=== PATIENT | male | born 1945 | race Caucasian/White ===

== ENCOUNTER 2018-03-07 09:39 | Inpatient (IN) | payer MEDICARE, BC, OTHER ==
[~2018-03-07] VITALS: Ht 170.2 cm; Wt 62.7 kg
[2018-03-07 10:32] LABS: BASOPHILS % (AUTO) 0.3 % (0-1); EOSINOPHILS # (AUTO) 0.2 X10'3 (0-0.9); EOSINOPHILS % (AUTO) 1.7 % (0-6); HEMOGLOBIN 13.4 g/dl (14.0-17.9); LYMPHOCYTES # (AUTO) 0.7 X10'3 (1.1-4.8); LYMPHOCYTES % (AUTO) 7.9 % (21-51); MEAN CORPUSCULAR HEMOGLOBIN 31.2 PG (27.0-31.0); MEAN CORPUSCULAR HGB CONC 33.5 % (33.0-36.5); MEAN CORPUSCULAR VOLUME 93.2 FL (78-98); MONOCYTES # (AUTO) 0.7 X10'3 (0-0.9); MONOCYTES % (AUTO) 7.6 % (2-12); NEUTROPHILS # (AUTO) 7.6 X10'3 (1.8-7.7); NEUTROPHILS % (AUTO) 82.5 % (42-75); PLATELET COUNT 374 X10'3 (140-440); RED BLOOD COUNT 4.29 X10'6 (4.70-6.10); RED CELL DISTRIBUTION WIDTH 14.7 % (11.5-14.5); WHITE BLOOD COUNT 9.2 X10'3 (4.5-11.0)
[2018-03-07 10:44] LABS: INR 1.1 INR; PARTIAL THROMBOPLASTIN TIME 31 SECONDS (22-32); PROTHROMBIN TIME 11.2 SECONDS (9.0-12.0)
[2018-03-07] MEDS ORDERED: vancomycin/NS 1 GM ADD-VANTAGE 250 ML IV ONE (10:45)
[2018-03-07 10:51] LABS: ALANINE AMINOTRANSFERASE 16 U/L (12-78); ALBUMIN 3.1 G/DL (3.4-5.0); ALBUMIN/GLOBULIN RATIO 0.8 (1.1-1.5); ALKALINE PHOSPHATASE 99 IU/L (46-116); ANION GAP 8 (8-16); ASPARTATE AMINO TRANSFERASE 15 U/L (10-37); BILIRUBIN,TOTAL 0.6 MG/DL (0.1-1.0); BLOOD UREA NITROGEN 13 MG/DL (7-18); BUN/CREATININE RATIO 19.4 (5.4-32.0); CALCIUM 8.6 MG/DL (8.5-10.1); CHLORIDE 100 MMOL/L (99-107); CREATININE 0.67 MG/DL (0.60-1.10); GLUCOSE 99 MG/DL (70-104); SODIUM 137 MMOL/L (135-145); TOTAL CARBON DIOXIDE 28.9 MMOL/L (24-32); eGFR > 90 ML/MIN
[2018-03-07] MEDS ORDERED: iohexol 300mg/ml 100ml inj. ONE (11:23)
[2018-03-07 12:42] LABS: C-REACTIVE PROTEIN 11.87 MG/DL (0.0-0.5)
[2018-03-07] MEDS ORDERED: [UNRECOGNIZED DRUG - CODE] PO (12:53)
[2018-03-07] MEDS ORDERED: MULT-933 PO (12:53)
[2018-03-07] MEDS ORDERED: NEOM28.37 TOP (12:53)
[2018-03-07] MEDS ORDERED: ESCI10TA54 PO (12:53)
[2018-03-07] MEDS ORDERED: ACET-75 PO (12:53)
[2018-03-07] MEDS ORDERED: HALO1TAB PO (12:53)
[2018-03-07] MEDS ORDERED: FAMO20TA8 PO (12:53)
[2018-03-07] MEDS ORDERED: ALPR-385 PO (12:53)
[2018-03-07] MEDS ORDERED: DOXE50CA4 PO (12:53)
[2018-03-07] MEDS ORDERED: MINE120C3 TP (12:53)
[2018-03-07] MEDS ORDERED: FINA5TAB11 PO (12:53)
--- NOTE | 2018-03-07 14:05 | NUR ---
PICTURES OF RIGHT ARM WOUND TAKEN AND PLACED ON CHART. DR. WU IN TO ASSESS PATIENT AND SPEAK WITH SON. ORDER RECEIVED TO ADMINISTER ATIVAN PRIOR TO MRI.
--- NOTE | 2018-03-07 14:10 | NUR ---
BULKY DRESSING APPLIED TO RIGHT ARM WOUND WITH GAUZE AND SARA WRAP.
[2018-03-07] MEDS ORDERED: LORazepam 2 mg/ml vial IV ONE (14:15)
--- NOTE | 2018-03-07 14:20 | NUR ---
MEDICATED WITH ATIVAN. TO MRI PER WC WITH SON AND BLUNGER MACHINE OPERATOR.
[2018-03-07] MEDS ORDERED: non-formulary drug (Acetaminophen 1 TABLET) PO PRN (14:50)
[2018-03-07] MEDS ORDERED: magnesium 2GM in 50ml NS 50 ML IV PRN (14:50)
[2018-03-07] MEDS ORDERED: acetaminophen 325mg tablet PO PRN ×2 (14:50→15:30)
[2018-03-07] MEDS ORDERED: magnesium Cl slow-release 64mg tablet PO PRN (14:50)
[2018-03-07] MEDS ORDERED: mag hydrox/Alum hydrox/simeth 30ml oral suspension PO PRN (14:50)
[2018-03-07] MEDS ORDERED: magnesium hydroxide 30ml (MOM) UD suspension PO PRN (14:50)
[2018-03-07] MEDS ORDERED: haloperidol 1mg tablet PO PRN (14:50)
[2018-03-07] MEDS ORDERED: magnesium 4gm in 100ml NS 100 ML IV PRN (14:50)
[2018-03-07] MEDS ORDERED: potassium Cl 20 mEq SR tablet PO PRN ×2 (14:50)
[2018-03-07] MEDS ORDERED: potassium Cl 40MEQ/NS 500ml 500 ML IV PRN ×2 (14:50)
[2018-03-07] MEDS ORDERED: ondansetron/PF 4mg/2ml inj IV PRN (14:50)
[2018-03-07] MEDS ORDERED: gadopentetate dimeglumine 7.5 MMOL/15 ML syringe ONE (15:56)
--- NOTE | 2018-03-07 16:21 | NUR ---
SERVED REGULAR SACK LUNCH AND TOLERATED WELL. SON ASSISTING WITH EATING.
[2018-03-07] MEDS: normal saline 1000ml 1,000 ML IV SCH (16:53)
--- NOTE | 2018-03-07 17:06 | NUR ---
I have received patient report from Carrie MUNGUIA
[2018-03-07 17:40] VITALS: BP 138/87
[2018-03-07] MEDS: morphine 4 MG/ML inj SYRINge IV PRN (17:53)
--- NOTE | 2018-03-07 18:19 | NUR ---
Patient pulled off tele monitor about 2 minutes after we had placed it on.
--- NOTE | 2018-03-07 18:30 | NUR ---
I paged Dr. Joe that patients chest all red from the tele pads and he keeps peeling them off. She said ok to DC the tele.
--- NOTE | 2018-03-07 18:36 | NUR ---
I gave patient report to Summer Olvera
[2018-03-07] MEDS ORDERED: non-formulary drug (Doxepin HCl 1 CAP) PO SCH (21:00)
[2018-03-07] MEDS ORDERED: non-formulary drug (Alprazolam 1 TAB) PO SCH (21:00)
[2018-03-07] MEDS: doxepin 25mg capsule PO SCH (21:42)
[2018-03-07] MEDS: ALPRAZolam 0.5mg tablet PO SCH (21:42)
[2018-03-07] MEDS: heparin, porcine 5000 units/ml vial SQ SCH (21:44)
[2018-03-07 22:00] VITALS: BP 124/73
[2018-03-07] MEDS: vancomycin/NS 1 GM ADD-VANTAGE 250 ML IV SCH (23:23)
[2018-03-08] VITALS (17 sets, daily range): BP systolic 111–145; BP diastolic 68–90
[2018-03-08] MEDS: normal saline 1000ml 1,000 ML IV SCH ×3 (04:09→19:41)
[2018-03-08 06:24] LABS: BASOPHILS # (AUTO) 0.1 X10'3 (0-0.2); EOSINOPHILS # (AUTO) 0.5 X10'3 (0-0.9); EOSINOPHILS % (AUTO) 8.6 % (0-6); HEMATOCRIT 33.8 % (42.0-52.0); HEMOGLOBIN 11.4 g/dl (14.0-17.9); LYMPHOCYTES # (AUTO) 0.7 X10'3 (1.1-4.8); LYMPHOCYTES % (AUTO) 12.1 % (21-51); MEAN CORPUSCULAR HEMOGLOBIN 31.5 PG (27.0-31.0); MEAN CORPUSCULAR HGB CONC 33.8 % (33.0-36.5); MEAN CORPUSCULAR VOLUME 92.9 FL (78-98); MEAN PLATELET VOLUME 7.9 FL (7.4-10.4); MONOCYTES # (AUTO) 0.6 X10'3 (0-0.9); MONOCYTES % (AUTO) 10.4 % (2-12); NEUTROPHILS # (AUTO) 3.8 X10'3 (1.8-7.7); NEUTROPHILS % (AUTO) 67.9 % (42-75); PLATELET COUNT 274 X10'3 (140-440); RED BLOOD COUNT 3.64 X10'6 (4.70-6.10); RED CELL DISTRIBUTION WIDTH 14.4 % (11.5-14.5); WHITE BLOOD COUNT 5.6 X10'3 (4.5-11.0)
[2018-03-08 06:51] LABS: ALANINE AMINOTRANSFERASE 12 U/L (12-78); ALBUMIN 2.3 G/DL (3.4-5.0); ALBUMIN/GLOBULIN RATIO 0.7 (1.1-1.5); ALKALINE PHOSPHATASE 78 IU/L (46-116); ANION GAP 5 (8-16); ASPARTATE AMINO TRANSFERASE 14 U/L (10-37); BILIRUBIN,TOTAL 0.4 MG/DL (0.1-1.0); BLOOD UREA NITROGEN 8 MG/DL (7-18); BUN/CREATININE RATIO 13.6 (5.4-32.0); CHLORIDE 105 MMOL/L (99-107); CREATININE 0.59 MG/DL (0.60-1.10); GLUCOSE 84 MG/DL (70-104); MAGNESIUM 1.8 MG/DL (1.5-2.4); POTASSIUM 3.7 MMOL/L (3.5-5.1); SODIUM 139 MMOL/L (135-145); TOTAL CARBON DIOXIDE 29.1 MMOL/L (24-32); TOTAL PROTEIN 5.5 G/DL (6.4-8.2); eGFR > 90 ML/MIN
[2018-03-08] MEDS: famotidine 20mg tablet PO SCH (07:15)
[2018-03-08] MEDS: citalopram 20mg tablet PO SCH (07:15)
[2018-03-08] MEDS: finasteride 5mg tablet PO SCH (07:16)
[2018-03-08] MEDS: heparin, porcine 5000 units/ml vial SQ SCH ×2 (08:00→20:11)
[2018-03-08] MEDS: K and/or MAG REPLACEMENT MC SCH (08:00)
[2018-03-08] MEDS: vancomycin/NS 1 GM ADD-VANTAGE 250 ML IV SCH ×2 (12:10→22:29)
--- NOTE | 2018-03-08 14:10 | NUR ---
I gave patient report to So MUNGUIA in Recovery and I let her know about patient blood sugar 74. She said she would tell anesthesia.
[2018-03-08] MEDS ORDERED: ringers solution, lacted 1,000 ML IV SCH (14:33)
[2018-03-08] MEDS ORDERED: labetalol 20mg/4ml (5mg/ml) syringe IV PRN (14:35)
[2018-03-08] MEDS ORDERED: ceFAZolin 1000mg inj ONE (14:35)
[2018-03-08] MEDS ORDERED: morphine 4 MG/ML inj SYRINge IV PRN ×2 (14:35)
[2018-03-08] MEDS ORDERED: bacitracin 15gm ointment TP ONE (14:35)
[2018-03-08] MEDS ORDERED: ondansetron/PF 4mg/2ml inj IV PRN (14:35)
[2018-03-08] MEDS ORDERED: fentaNYL/PF 50MCG/1 ML 2ML syringe IV PRN ×2 (14:35)
[2018-03-08] MEDS ORDERED: hydrALAZINE 20mg/ml inj. IV PRN (14:35)
[2018-03-08] MEDS ORDERED: fentaNYL/PF 50MCG/1 ML 2ML syringe ONE ×2 (14:57→16:11)
[2018-03-08] MEDS ORDERED: midazolam 2 mg/2 ml injection ONE (14:58)
[2018-03-08] MEDS ORDERED: LIDOcaine 2% (20mg/ml) 5ml vial ONE (16:11)
[2018-03-08] MEDS ORDERED: propofol inj 20 ML IV ONE (16:11)
--- NOTE | 2018-03-08 17:10 | NUR ---
Report called to receiving nurse. Transferred via BED Belongings . Special Issues communicated to receiving nurse.AWAKE AND IN NO APPARANT DISTRESS. VITALS STABLE. DRESSING DI. TO ORTHO RM 4009B AT THIS TIME.
--- NOTE | 2018-03-08 17:27 | NUR ---
I have received patient report from Cortez MUNGUIA
--- NOTE | 2018-03-08 18:15 | NUR ---
Patient in room ORTHO 4009a. I have received report from EZRA Vergara and had the opportunity to ask questions and assume patient care.
--- NOTE | 2018-03-08 18:19 | NUR ---
Patient report given to Summer Ortega RN
[2018-03-08] MEDS: doxepin 25mg capsule PO SCH (20:11)
[2018-03-08] MEDS: lactobacillus rhamnosus 10,000 MMU CELLS/CAPSULE PO SCH (20:11)
[2018-03-08] MEDS: ALPRAZolam 0.5mg tablet PO SCH (20:11)
[2018-03-08] MEDS ORDERED: VANCOMYCIN LEVEL IV ONE (22:30)
--- NOTE | 2018-03-08 22:40 | NUR ---
Bladder scanned patient unknown last time voided due to surgery. Bladder scan showed 343ml. Will continue to monitor.
[2018-03-09] VITALS (8 sets, daily range): BP systolic 82–139; BP diastolic 44–89
--- NOTE | 2018-03-09 00:13 | NUR ---
PAGER ID: [phone] MESSAGE: Burt Amelie [phone] here for Right arm abscess who had I&D done with wound vac on days has not voided since I came on. Bladder scanned for 548 ml. Chandler? or Straight catheter. has hx of BPH. Call ivy at [phone]
--- NOTE | 2018-03-09 01:06 | NUR ---
Unable to do straight cath per Marcus due to his enlarged prostate. I was however able to place a gonzalez catheter with a 14 turkish coude catheter. I did page Dr. Velazquez to inform him that I had to place a gnozalez catheter but he has yet to call me back. It is unsafe to keep doing straight catheters on a patient with BPH because it would cause unnecessary trauma.
--- NOTE | 2018-03-09 06:18 | NUR ---
Problems reprioritized. Patient report given, questions answered & plan of care reviewed with EZRA Valdez.
--- NOTE | 2018-03-09 06:20 | NUR ---
Patient in room ORTHO 4009. I have received report from Summer Romano and had the opportunity to ask questions and assume patient care.
[2018-03-09 07:12] LABS: BASOPHILS # (AUTO) 0.1 X10'3 (0-0.2); BASOPHILS % (AUTO) 0.9 % (0-1); EOSINOPHILS # (AUTO) 0.4 X10'3 (0-0.9); EOSINOPHILS % (AUTO) 7.2 % (0-6); HEMATOCRIT 34.3 % (42.0-52.0); HEMOGLOBIN 11.4 g/dl (14.0-17.9); LYMPHOCYTES # (AUTO) 0.6 X10'3 (1.1-4.8); LYMPHOCYTES % (AUTO) 10.1 % (21-51); MEAN CORPUSCULAR HEMOGLOBIN 30.7 PG (27.0-31.0); MEAN CORPUSCULAR HGB CONC 33.1 % (33.0-36.5); MEAN CORPUSCULAR VOLUME 92.8 FL (78-98); MONOCYTES # (AUTO) 0.5 X10'3 (0-0.9); MONOCYTES % (AUTO) 7.9 % (2-12); NEUTROPHILS # (AUTO) 4.3 X10'3 (1.8-7.7); NEUTROPHILS % (AUTO) 73.9 % (42-75); PLATELET COUNT 286 X10'3 (140-440); RED CELL DISTRIBUTION WIDTH 14.6 % (11.5-14.5); WHITE BLOOD COUNT 5.9 X10'3 (4.5-11.0)
[2018-03-09 07:38] LABS: ALANINE AMINOTRANSFERASE 13 U/L (12-78); ALBUMIN 2.4 G/DL (3.4-5.0); ALBUMIN/GLOBULIN RATIO 0.7 (1.1-1.5); ALKALINE PHOSPHATASE 75 IU/L (46-116); ANION GAP 13 (8-16); ASPARTATE AMINO TRANSFERASE 14 U/L (10-37); BILIRUBIN,TOTAL 0.6 MG/DL (0.1-1.0); BLOOD UREA NITROGEN 8 MG/DL (7-18); BUN/CREATININE RATIO 11.9 (5.4-32.0); CHLORIDE 104 MMOL/L (99-107); CREATININE 0.67 MG/DL (0.60-1.10); GLUCOSE 68 MG/DL (70-104); MAGNESIUM 1.7 MG/DL (1.5-2.4); POTASSIUM 3.8 MMOL/L (3.5-5.1); SODIUM 141 MMOL/L (135-145); TOTAL CARBON DIOXIDE 24.3 MMOL/L (24-32); TOTAL PROTEIN 5.7 G/DL (6.4-8.2); eGFR > 90 ML/MIN
[2018-03-09] MEDS: K and/or MAG REPLACEMENT MC SCH (08:00)
[2018-03-09] MEDS: famotidine 20mg tablet PO SCH (10:47)
[2018-03-09] MEDS: lactobacillus rhamnosus 10,000 MMU CELLS/CAPSULE PO SCH ×2 (10:47→18:58)
[2018-03-09] MEDS: finasteride 5mg tablet PO SCH (10:47)
[2018-03-09] MEDS: citalopram 20mg tablet PO SCH (10:47)
[2018-03-09] MEDS: heparin, porcine 5000 units/ml vial SQ SCH ×2 (10:49→18:59)
[2018-03-09] MEDS ORDERED: vancomycin inj 1,250 MG in normal saline 250ml IV soln 250 ML IV SCH (11:00)
[2018-03-09] MEDS: normal saline 1000ml 1,000 ML IV SCH (11:21)
[2018-03-09] MEDS: morphine 4 MG/ML inj SYRINge IV PRN (11:21)
[2018-03-09] MEDS ORDERED: haloperidol 10mg/5ml UD oral solution PO PRN (12:17)
--- NOTE | 2018-03-09 14:35 | NUR ---
PAGER ID: [phone] MESSAGE: Courtney Pierre Dr. on ortho/neuro, # [phone], re: pt in room 4009A, Mr. Kinsey, please call me at your earliest convenience, thank you
[2018-03-09] MEDS: HYDROcodone/acetaminophen 10/325mg tab PO PRN (15:54)
[2018-03-09] MEDS: ceFAZolin 1GM/D5W- ADD-VANTAGE 50 ML IV SCH ×2 (16:36→23:44)
--- NOTE | 2018-03-09 18:06 | NUR ---
Problems reprioritized. Patient report given, questions answered & plan of care reviewed with Summer Romano
--- NOTE | 2018-03-09 18:15 | NUR ---
Received report from EZRA Valdez.
[2018-03-09] MEDS: doxepin 25mg capsule PO SCH (18:58)
[2018-03-09] MEDS: ALPRAZolam 0.5mg tablet PO SCH (18:58)
--- NOTE | 2018-03-09 19:00 | NUR ---
Had to have patient have a sitter for short period of time due to patient pulling at lines. Patient took all medication early per family request.
[2018-03-09] MEDS ORDERED: normal saline 500ml IV soln 500 ML IV ONE (21:45)
--- NOTE | 2018-03-09 22:56 | NUR ---
Bolused patient due to borderline low bp with 250 ml and bp went up to 100/50. Tylenol provided for temp of 102.2 with decrease with cooling measures and tylenol. Now temp 100.4 oral. Bladder scanned patient with noted 103 ml noted in bladder.
--- NOTE | 2018-03-10 03:10 | NUR ---
Patient still hasn't voided this shift; again bladder scanned with only 131 ml noted in bladder. Will continue to monitor.
--- NOTE | 2018-03-10 06:21 | NUR ---
Problems reprioritized. Patient report given, questions answered & plan of care reviewed with EZRA Jalloh.
[2018-03-10 06:59] VITALS: BP 83/54
[2018-03-10 07:12] LABS: EOSINOPHILS # (AUTO) 0.4 X10'3 (0-0.9); EOSINOPHILS % (AUTO) 8.8 % (0-6); HEMATOCRIT 30.6 % (42.0-52.0); HEMOGLOBIN 10.4 g/dl (14.0-17.9); LYMPHOCYTES # (AUTO) 0.8 X10'3 (1.1-4.8); LYMPHOCYTES % (AUTO) 17.8 % (21-51); MEAN CORPUSCULAR HEMOGLOBIN 31.6 PG (27.0-31.0); MEAN CORPUSCULAR HGB CONC 33.9 % (33.0-36.5); MEAN CORPUSCULAR VOLUME 93.2 FL (78-98); MEAN PLATELET VOLUME 7.7 FL (7.4-10.4); MONOCYTES # (AUTO) 0.6 X10'3 (0-0.9); MONOCYTES % (AUTO) 14.8 % (2-12); NEUTROPHILS # (AUTO) 2.4 X10'3 (1.8-7.7); NEUTROPHILS % (AUTO) 57.6 % (42-75); PLATELET COUNT 271 X10'3 (140-440); RED BLOOD COUNT 3.28 X10'6 (4.70-6.10); RED CELL DISTRIBUTION WIDTH 14.4 % (11.5-14.5); WHITE BLOOD COUNT 4.3 X10'3 (4.5-11.0)
[2018-03-10] MEDS: famotidine 20mg tablet PO SCH (07:43)
[2018-03-10] MEDS: ceFAZolin 1GM/D5W- ADD-VANTAGE 50 ML IV SCH ×2 (07:43→17:12)
[2018-03-10] MEDS: lactobacillus rhamnosus 10,000 MMU CELLS/CAPSULE PO SCH ×2 (07:43→20:26)
[2018-03-10] MEDS: finasteride 5mg tablet PO SCH (07:43)
[2018-03-10] MEDS: citalopram 20mg tablet PO SCH (07:43)
[2018-03-10] MEDS: K and/or MAG REPLACEMENT MC SCH (07:44)
[2018-03-10] MEDS: heparin, porcine 5000 units/ml vial SQ SCH ×2 (07:44→20:27)
[2018-03-10 07:48] LABS: ALANINE AMINOTRANSFERASE 15 U/L (12-78); ALBUMIN 2.1 G/DL (3.4-5.0); ALBUMIN/GLOBULIN RATIO 0.7 (1.1-1.5); ALKALINE PHOSPHATASE 67 IU/L (46-116); ANION GAP 8 (8-16); ASPARTATE AMINO TRANSFERASE 18 U/L (10-37); BILIRUBIN,TOTAL 0.3 MG/DL (0.1-1.0); BLOOD UREA NITROGEN 10 MG/DL (7-18); BUN/CREATININE RATIO 13.2 (5.4-32.0); CALCIUM 7.6 MG/DL (8.5-10.1); CHLORIDE 108 MMOL/L (99-107); CREATININE 0.76 MG/DL (0.60-1.10); GLUCOSE 95 MG/DL (70-104); MAGNESIUM 1.7 MG/DL (1.5-2.4); POTASSIUM 3.3 MMOL/L (3.5-5.1); SODIUM 142 MMOL/L (135-145); TOTAL CARBON DIOXIDE 25.6 MMOL/L (24-32); TOTAL PROTEIN 5.1 G/DL (6.4-8.2); eGFR > 90 ML/MIN
[2018-03-10] MEDS: normal saline 1000ml 1,000 ML IV SCH ×2 (09:17→20:49)
[2018-03-10 10:50] VITALS: BP 114/76
--- NOTE | 2018-03-10 18:00 | NUR ---
REPORT REC'D FROM EZRA LAGUERRE.
[2018-03-10 18:17] VITALS: BP 159/78
[2018-03-10] MEDS: ALPRAZolam 0.5mg tablet PO SCH (20:26)
[2018-03-10] MEDS: doxepin 25mg capsule PO SCH (20:27)
[2018-03-10 22:00] VITALS: BP 143/88
[2018-03-10] MEDS ORDERED: VANCOMYCIN LEVEL IV NR (22:30)
[2018-03-10] MEDS: HYDROcodone/acetaminophen 10/325mg tab PO PRN (22:59)
[2018-03-11] MEDS: ceFAZolin 1GM/D5W- ADD-VANTAGE 50 ML IV SCH ×3 (00:16→15:42)
[2018-03-11] MEDS ORDERED: methylPREDNISolone sod succ 125mg/2ml vial IV ONE (00:40)
--- NOTE | 2018-03-11 01:18 | NUR ---
NOTIFIED DR PALMA R/T PT ITCHING AND RASH ON BACK, NO BENEDRYL. GAVE NEW ORDER FOR SOLUMEDROL 62.5MG IV ONCE.
--- NOTE | 2018-03-11 02:09 | NUR ---
PT PULLED OUT PIV ON LEFT AC. NEW 20GU PIV PLACED ON RFA ONE ATTEMPT. COBAN WRAPPED TO PIV AND TO COVER LOOSELY ON WOUND VAC SITE PT WAS ALREADY TRYING TO PULL OUT. SOLUMEDROL GIVEN ORDERED FOR ITCHING RASH. TOPICAL CALAZIME CREAM TO RASH TO HELP WITH ITCHING.
--- NOTE | 2018-03-11 03:31 | NUR ---
CONDOM CATH APPLIED , FUNCTIONING WELL.
--- NOTE | 2018-03-11 06:17 | NUR ---
REPORT GIVEN TO EZRA LAGUERRE.
[2018-03-11 06:33] VITALS: BP 135/86
[2018-03-11 06:56] LABS: BASOPHILS % (AUTO) 0.1 % (0-1); EOSINOPHILS % (AUTO) 0 % (0-6); HEMATOCRIT 34.4 % (42.0-52.0); HEMOGLOBIN 11.5 g/dl (14.0-17.9); LYMPHOCYTES # (AUTO) 0.3 X10'3 (1.1-4.8); LYMPHOCYTES % (AUTO) 6.8 % (21-51); MEAN CORPUSCULAR HGB CONC 33.6 % (33.0-36.5); MEAN CORPUSCULAR VOLUME 92.5 FL (78-98); MONOCYTES % (AUTO) 1.1 % (2-12); NEUTROPHILS # (AUTO) 4.3 X10'3 (1.8-7.7); PLATELET COUNT 310 X10'3 (140-440); RED BLOOD COUNT 3.72 X10'6 (4.70-6.10); RED CELL DISTRIBUTION WIDTH 14.4 % (11.5-14.5); WHITE BLOOD COUNT 4.7 X10'3 (4.5-11.0)
[2018-03-11 07:30] LABS: ALANINE AMINOTRANSFERASE 19 U/L (12-78); ALBUMIN 2.5 G/DL (3.4-5.0); ALBUMIN/GLOBULIN RATIO 0.7 (1.1-1.5); ALKALINE PHOSPHATASE 81 IU/L (46-116); ANION GAP 10 (8-16); ASPARTATE AMINO TRANSFERASE 27 U/L (10-37); BILIRUBIN,TOTAL 0.3 MG/DL (0.1-1.0); BLOOD UREA NITROGEN 5 MG/DL (7-18); BUN/CREATININE RATIO 7.7 (5.4-32.0); CALCIUM 8.1 MG/DL (8.5-10.1); CHLORIDE 106 MMOL/L (99-107); CREATININE 0.65 MG/DL (0.60-1.10); GLUCOSE 131 MG/DL (70-104); MAGNESIUM 1.7 MG/DL (1.5-2.4); POTASSIUM 3.2 MMOL/L (3.5-5.1); SODIUM 142 MMOL/L (135-145); TOTAL CARBON DIOXIDE 26.2 MMOL/L (24-32); eGFR > 90 ML/MIN
[2018-03-11] MEDS: citalopram 20mg tablet PO SCH (07:37)
[2018-03-11] MEDS: finasteride 5mg tablet PO SCH (07:37)
[2018-03-11] MEDS: heparin, porcine 5000 units/ml vial SQ SCH ×2 (07:37→20:24)
[2018-03-11] MEDS: famotidine 20mg tablet PO SCH (07:37)
[2018-03-11] MEDS: lactobacillus rhamnosus 10,000 MMU CELLS/CAPSULE PO SCH ×2 (07:37→20:24)
[2018-03-11] MEDS: K and/or MAG REPLACEMENT MC SCH (07:38)
[2018-03-11] MEDS: HYDROcodone/acetaminophen 10/325mg tab PO PRN ×2 (09:02→12:33)
[2018-03-11] MEDS: normal saline 1000ml 1,000 ML IV SCH (10:04)
--- NOTE | 2018-03-11 10:58 | NUR ---
Extended PIV inserted to the left upper arm basilic vein x 1 attempt using ultrasound. Jacqui well Addendum: 03/11/18 at 1059 by Lady Cho RN Amended: Links added.
[2018-03-11 12:05] VITALS: BP 127/71
[2018-03-11] MEDS: morphine 4 MG/ML inj SYRINge IV PRN (12:10)
--- NOTE | 2018-03-11 13:12 | NUR ---
WOUND VAC EDUCATION PROVIDED BY WOUND CARE 1. Patient instructed to call the Wound Center or their Home Health Agency immediately if: * They notice a change in the color or amount of the fluid in the canister. * Their wound looks more red than usual or has a foul smell. * The skin around their wound looks reddened or irritated. * The dressing feels loose or appears to be loose. * They experience any increase or changes in their pain. * The alarm will not turn off. 2. Patient instructed that they should not be disconnected from suction for more than 2 hours at a time. * If they are not able to get the suction back on, they need to remove the dressing and take all of the foam out of the wound. * Then moisten sterile gauze with normal saline and place on/in the wound. * Change the dressing once a day until arrangements have been made to replace the wound vac dressing. 3. Patient instructed to turn the wound vac machine OFF and call 911 or go to the ED immediately if their canister fills rapidly with blood. 4. If any of these occur while in the hospital tell a nurse immediately.
--- NOTE | 2018-03-11 13:55 | NUR ---
RECOMMEND: 1. Daily bathing with no rinse skin cleanser. 2. Cream/Lotion to be applied to skin after bathing. 3. Arin care Q shift and prn soiling followed by with Barrier Cream. 4. Turn patient Q 1-2 hrs and reposition with pillows. 5. Float heels to offload pressure. 6. Conisder a dietary consult 7> Wound VAC to left upper arm. Settings 125mmHg, low, cont. Routine dressing changes
--- NOTE | 2018-03-11 14:00 | NUR ---
RECOMMEND: 1. Daily bathing with no rinse skin cleanser. 2. Cream/Lotion to be applied to skin after bathing. 3. Arin care Q shift and prn soiling followed by with Barrier Cream. 4. Turn patient Q 1-2 hrs and reposition with pillows. 5. Float heels to offload pressure. 6. Consider a dietary consult 7. Wound VAC to Right upper arm. Settings 125mmHg, low, cont. Routine dressing changes Addendum: 03/11/18 at 1405 by Radha Soria RN Amended: Links added.
[2018-03-11] MEDS ORDERED: potassium Cl 20 mEq SR tablet PO STA (14:36)
[2018-03-11 18:00] VITALS: BP 122/77
--- NOTE | 2018-03-11 18:40 | NUR ---
REPORT REC'D FROM EZRA LAGUERRE.
[2018-03-11] MEDS: doxepin 25mg capsule PO SCH (20:24)
[2018-03-11] MEDS: ALPRAZolam 0.5mg tablet PO SCH (20:24)
--- NOTE | 2018-03-11 20:31 | NUR ---
NEW CONDOM CATH APPLIED.
[2018-03-12] MEDS: normal saline 1000ml 1,000 ML IV SCH ×3 (00:33→23:30)
[2018-03-12] MEDS: ceFAZolin 1GM/D5W- ADD-VANTAGE 50 ML IV SCH ×4 (00:33→23:30)
[2018-03-12 02:30] VITALS: BP 110/71
--- NOTE | 2018-03-12 06:17 | NUR ---
REPORT GIVEN TO EZRA LAGUERRE.
[2018-03-12 06:36] LABS: BASOPHILS % (AUTO) 0.3 % (0-1); EOSINOPHILS # (AUTO) 0.1 X10'3 (0-0.9); EOSINOPHILS % (AUTO) 1.8 % (0-6); HEMOGLOBIN 11.1 g/dl (14.0-17.9); LYMPHOCYTES # (AUTO) 1.2 X10'3 (1.1-4.8); MEAN CORPUSCULAR HEMOGLOBIN 31.4 PG (27.0-31.0); MEAN CORPUSCULAR HGB CONC 33.7 % (33.0-36.5); MEAN CORPUSCULAR VOLUME 93.2 FL (78-98); MEAN PLATELET VOLUME 7.7 FL (7.4-10.4); MONOCYTES # (AUTO) 0.6 X10'3 (0-0.9); MONOCYTES % (AUTO) 8.5 % (2-12); NEUTROPHILS # (AUTO) 4.7 X10'3 (1.8-7.7); NEUTROPHILS % (AUTO) 71.4 % (42-75); PLATELET COUNT 294 X10'3 (140-440); RED BLOOD COUNT 3.54 X10'6 (4.70-6.10); RED CELL DISTRIBUTION WIDTH 14.8 % (11.5-14.5); WHITE BLOOD COUNT 6.5 X10'3 (4.5-11.0)
[2018-03-12 07:06] VITALS: BP 114/64
[2018-03-12 07:06] LABS: ALANINE AMINOTRANSFERASE 14 U/L (12-78); ALBUMIN 2.1 G/DL (3.4-5.0); ALBUMIN/GLOBULIN RATIO 0.7 (1.1-1.5); ALKALINE PHOSPHATASE 72 IU/L (46-116); ANION GAP 8 (8-16); ASPARTATE AMINO TRANSFERASE 20 U/L (10-37); BILIRUBIN,TOTAL 0.2 MG/DL (0.1-1.0); BLOOD UREA NITROGEN 9 MG/DL (7-18); CALCIUM 7.8 MG/DL (8.5-10.1); CHLORIDE 109 MMOL/L (99-107); CREATININE 0.75 MG/DL (0.60-1.10); GLUCOSE 91 MG/DL (70-104); MAGNESIUM 1.9 MG/DL (1.5-2.4); POTASSIUM 3.6 MMOL/L (3.5-5.1); SODIUM 143 MMOL/L (135-145); TOTAL CARBON DIOXIDE 25.6 MMOL/L (24-32); TOTAL PROTEIN 5.3 G/DL (6.4-8.2); eGFR > 90 ML/MIN
[2018-03-12] MEDS: K and/or MAG REPLACEMENT MC SCH (08:00)
[2018-03-12] MEDS: HYDROcodone/acetaminophen 10/325mg tab PO PRN ×2 (08:00→13:40)
[2018-03-12] MEDS: lactobacillus rhamnosus 10,000 MMU CELLS/CAPSULE PO SCH ×2 (08:00→20:24)
[2018-03-12] MEDS: finasteride 5mg tablet PO SCH (08:01)
[2018-03-12] MEDS: heparin, porcine 5000 units/ml vial SQ SCH ×2 (08:01→20:25)
[2018-03-12] MEDS: famotidine 20mg tablet PO SCH (08:01)
[2018-03-12] MEDS: citalopram 20mg tablet PO SCH (08:01)
[2018-03-12] MEDS ORDERED: bisacodyl 10mg suppository rectal RC STA (09:21)
[2018-03-12 10:00] VITALS: BP 127/81
--- NOTE | 2018-03-12 11:55 | NUR ---
Wound consult: Pt admit w/ R arm abscess s/p I&D w/ wound vac placement. PO 100% regular diet meeting needs. Ensure high protein added TIDWM for additional needs and since PO potential fluctuation given hx moderate dementia; MD notified. Not appropriate for protein ed r/t dementia. Receiving MoM PRN for bowel care. BRENTON d/w RN for MVM for wound healing per MD approval. Will continue to monitor. Rec; 1. continue regular diet 2. ensure high protein TIDWM 3. MVM for wound healing 4. wt per rx Addendum: 03/12/18 at [address] Amended: Links added.
[2018-03-12] MEDS ORDERED: lactose-reduced food (Ensure High Protein) 237ml bottle PO SCH (13:00)
[2018-03-12 18:00] VITALS: BP 139/83
[2018-03-12] MEDS: ALPRAZolam 0.5mg tablet PO SCH (20:24)
[2018-03-12] MEDS: doxepin 25mg capsule PO SCH (20:24)
[2018-03-12 22:00] VITALS: BP 131/73
[2018-03-13 06:00] VITALS: BP 141/59
--- NOTE | 2018-03-13 06:20 | NUR ---
Patient in room ORTHO 4009. I have received report from Jolanta and had the opportunity to ask questions and assume patient care.
--- NOTE | 2018-03-13 06:33 | NUR ---
REPORT GIVEN TO EZRA POLLARD.
[2018-03-13] MEDS: K and/or MAG REPLACEMENT MC SCH (08:00)
[2018-03-13] MEDS: lactose-reduced food (Ensure High Protein) 237ml bottle PO SCH ×3 (08:00→18:00)
[2018-03-13] MEDS: ceFAZolin 1GM/D5W- ADD-VANTAGE 50 ML IV SCH ×2 (09:24→15:52)
[2018-03-13] MEDS: citalopram 20mg tablet PO SCH (09:26)
[2018-03-13] MEDS: finasteride 5mg tablet PO SCH (09:27)
[2018-03-13] MEDS: famotidine 20mg tablet PO SCH (09:27)
[2018-03-13] MEDS: lactobacillus rhamnosus 10,000 MMU CELLS/CAPSULE PO SCH ×2 (09:27→21:13)
[2018-03-13] MEDS: heparin, porcine 5000 units/ml vial SQ SCH ×2 (09:29→21:14)
[2018-03-13 10:00] VITALS: BP 129/81
[2018-03-13] MEDS: morphine 4 MG/ML inj SYRINge IV PRN (14:13)
[2018-03-13] MEDS: normal saline 1000ml 1,000 ML IV SCH (15:52)
--- NOTE | 2018-03-13 17:38 | NUR ---
Pt pulled condom catheter off, replaced with new one
[2018-03-13 18:00] VITALS: BP 129/81
--- NOTE | 2018-03-13 18:11 | NUR ---
Pt pulled condom catheter off again
--- NOTE | 2018-03-13 18:18 | NUR ---
Problems reprioritized. Patient report given, questions answered & plan of care reviewed with Kelli.
[2018-03-13] MEDS: doxepin 25mg capsule PO SCH (21:14)
[2018-03-13] MEDS: ALPRAZolam 0.5mg tablet PO SCH (21:14)
[2018-03-13 22:00] VITALS: BP 98/50
[2018-03-14] MEDS: ceFAZolin 1GM/D5W- ADD-VANTAGE 50 ML IV SCH ×4 (00:08→23:43)
[2018-03-14 06:00] VITALS: BP 130/85
--- NOTE | 2018-03-14 06:00 | NUR ---
Patient in room ORTHO 4009. I have received report from Kelli MUNGUIA and had the opportunity to ask questions and assume patient care.
[2018-03-14] MEDS: lactose-reduced food (Ensure High Protein) 237ml bottle PO SCH ×3 (08:00→18:00)
[2018-03-14] MEDS: K and/or MAG REPLACEMENT MC SCH (08:00)
[2018-03-14] MEDS: normal saline 1000ml 1,000 ML IV SCH ×2 (08:39→20:09)
[2018-03-14] MEDS: heparin, porcine 5000 units/ml vial SQ SCH ×2 (08:40→20:35)
[2018-03-14] MEDS: finasteride 5mg tablet PO SCH (08:44)
[2018-03-14] MEDS: lactobacillus rhamnosus 10,000 MMU CELLS/CAPSULE PO SCH ×2 (08:44→20:35)
[2018-03-14] MEDS: citalopram 20mg tablet PO SCH (08:44)
[2018-03-14] MEDS: famotidine 20mg tablet PO SCH (08:44)
[2018-03-14 10:00] VITALS: BP 153/75
[2018-03-14 18:00] VITALS: BP 152/82
--- NOTE | 2018-03-14 18:05 | NUR ---
Problems reprioritized. Patient report given, questions answered & plan of care reviewed with Lizet MUNGUIA.
--- NOTE | 2018-03-14 18:10 | NUR ---
Patient in room ORTHO 4009. I have received report from EZRA Rider and had the opportunity to ask questions and assume patient care.
[2018-03-14] MEDS: doxepin 25mg capsule PO SCH (20:35)
[2018-03-14] MEDS: ALPRAZolam 0.5mg tablet PO SCH (20:35)
[2018-03-14 22:00] VITALS: BP 122/68
[2018-03-15] MEDS: normal saline 1000ml 1,000 ML IV SCH (05:48)
[2018-03-15 06:00] VITALS: BP 132/72
--- NOTE | 2018-03-15 06:15 | NUR ---
Patient in room ORTHO 4009. I have received report from Lizet MUNGUIA and had the opportunity to ask questions and assume patient care.
--- NOTE | 2018-03-15 06:16 | NUR ---
Problems reprioritized. Patient report given, questions answered & plan of care reviewed with EZRA Rider.
[2018-03-15] MEDS: K and/or MAG REPLACEMENT MC SCH (08:00)
[2018-03-15] MEDS: famotidine 20mg tablet PO SCH (08:17)
[2018-03-15] MEDS: citalopram 20mg tablet PO SCH (08:17)
[2018-03-15] MEDS: lactobacillus rhamnosus 10,000 MMU CELLS/CAPSULE PO SCH (08:17)
[2018-03-15] MEDS: finasteride 5mg tablet PO SCH (08:19)
[2018-03-15] MEDS: heparin, porcine 5000 units/ml vial SQ SCH (08:19)
[2018-03-15] MEDS: ceFAZolin 1GM/D5W- ADD-VANTAGE 50 ML IV SCH (08:19)
[2018-03-15] MEDS: lactose-reduced food (Ensure High Protein) 237ml bottle PO SCH (08:20)
[2018-03-15 10:00] VITALS: BP 129/81
[2018-03-15] MEDS: morphine 4 MG/ML inj SYRINge IV PRN (14:50)
--- NOTE | 2018-03-15 15:19 | NUR ---
reassessment: Pt PO decreased to 25% regular meals w/ ensure high protein past 2 days; was receiving MoM for bowel care which resulted in liquid stools past 2 days but this AM had solid per RN. Sosa arm surgery wound. Will continue to monitor for additional protein needs this admit. Rec; 1. continue regular diet 2. ensure high protein TIDWM 3. MVM for wound healing 4. wt per rx Addendum: 03/15/18 at [address] Amended: Links added.
[2018-03-15] MEDS ORDERED: CEPH-572 PO (16:32)
[2018-03-15] MEDS ORDERED: OXYC5CAP19 PO (16:45)
== END 2018-03-15 16:30 | disposition home health service (06) | DRG 579 ==
LOC: ER 09:41 → ED HOLD 14:49 → ORTHO 4S 17:32
PROVIDERS: ADMIT Internal Medicine; ATTEND Internal Medicine
PROC: BP2T1ZZ Computerized Tomography (CT Scan) of Right Upper Extremity using Low Osmolar Contrast (ICD-10-PCS; 2018-03-07)
PROC: BP3 Imaging, Non-Axial Upper Bones, Magnetic Resonance Imaging (MRI) (ICD-10-PCS; 2018-03-07)
PROC: 0K970ZZ Drainage of Right Upper Arm Muscle, Open Approach (ICD-10-PCS; 2018-03-08)
PROC: 0HBBXZZ Excision of Right Upper Arm Skin, External Approach (ICD-10-PCS; principal; 2018-03-08 15:34)
DX: L02.413 Cutaneous abscess of right upper limb (principal); E43 Unspecified severe protein-calorie malnutrition; F02.80 Dementia in other diseases classified elsewhere, unspecified severity, without behavioral disturbance, psychotic disturbance, mood disturbance, and anxiety; F43.12 Post-traumatic stress disorder, chronic; D16.01 Benign neoplasm of scapula and long bones of right upper limb; A49.01 Methicillin susceptible Staphylococcus aureus infection, unspecified site; G30.9 Alzheimer's disease, unspecified; H91.90 Unspecified hearing loss, unspecified ear; F32.9 Major depressive disorder, single episode, unspecified; K21.9 Gastro-esophageal reflux disease without esophagitis; L03.113 Cellulitis of right upper limb; N40.0 Benign prostatic hyperplasia without lower urinary tract symptoms; Z66 Do not resuscitate; Z79.899 Other long term (current) drug therapy; Z87.81 Personal history of (healed) traumatic fracture; Z68.21 Body mass index [BMI] 21.0-21.9, adult
CPT/HCPCS: 36415; 71045; 73201; 73220; 80053; 80202; 82948; 83605; 83735; 84145; 85025; 85610; 85651; 85730; 86140; 87040; 87070; 87075; 87077; 87102; 87186; 93005; 96365; 96366; 96375; 97110; 97116; 97530; 99285; A6449; A7000; A9579; G0378; J0690; J1644; J2001; J2060; J2250; J2270; J2704; J2930; J3010; J3370; J7030; J7120; Q9967